=== PATIENT | female | born 1985 | race Hispanic/Latino ===

== ENCOUNTER 2020-05-13 05:45 | Emergency (ER) | payer OTHER ==
[2020-05-13 06:39] LABS: AMPHET/METH SCREEN,URINE NEGATIVE (NEGATIVE); BARBITURATE SCREEN, URINE NEGATIVE (NEGATIVE); BENZODIAZEPINES SCREEN,URINE NEGATIVE (NEGATIVE); CANNABINOID SCREEN,URINE POSITIVE (NEGATIVE); COCAINE SCREEN,URINE POSITIVE (NEGATIVE); OPIATE SCREEN,URINE NEGATIVE (NEGATIVE); PHENCYCLIDINE SCREEN,URINE NEGATIVE (NEGATIVE)
== END 2020-05-13 07:41 | disposition home or self-care (01) ==
LOC: EDH 05:45
DX: E86.9 Volume depletion, unspecified (principal); F14.10 Cocaine abuse, uncomplicated; Z98.890 Other specified postprocedural states
CPT/HCPCS: 80305; 93005; 96360

== ENCOUNTER 2020-12-20 16:12 | Emergency (ER) | payer SELFPAY | END 2020-12-20 18:06 | disposition home or self-care (01) | LOC: EDH 16:12 | DX: S00.03XA Contusion of scalp, initial encounter (principal); S00.11XA Contusion of right eyelid and periocular area, initial encounter; X58.XXXA Exposure to other specified factors, initial encounter; Y93.89 Activity, other specified; Y92.89 Other specified places as the place of occurrence of the external cause; Y99.8 Other external cause status; Z98.890 Other specified postprocedural states | CPT/HCPCS: 70450; 70486; 72125; 81025 ==

== ENCOUNTER 2021-02-21 19:50 | Emergency (ER) | payer MEDICAID, OTHER ==
[~2021-02-21] VITALS: Ht 154.9 cm; Wt 63.5 kg
[2021-02-21 20:03] VITALS: BP 133/92
[2021-02-21 20:15] VITALS: BP 136/90
[2021-02-21] MEDS ORDERED: 0.9%NACL 1000ML 1,000 ML IV SCH ×2 (21:15)
[2021-02-21] MEDS ORDERED: ONDANSETRON 4MG INJ IVP SCH (21:15)
[2021-02-21] MEDS ORDERED: METOCLOPRAMIDE 10 MG/2 ML VIAL IVP SCH (21:15)
[2021-02-21] MEDS ORDERED: KETOROLAC 30MG VIAL (30MG/ML) IV SCH (21:15)
[2021-02-21] MEDS ORDERED: DiphenhydrAMINE HCL 50 MG/ML VIAL IV SCH (21:15)
[2021-02-21 21:27] LABS: BASOPHILS % (AUTO) 0.7 % (0.0-5.0); EOSINOPHILS % (AUTO) 0.8 % (0.0-8.0); HEMATOCRIT 30.4 % (36-48); MEAN CORPUSCULAR HEMOGLOBIN 25.3 pg (27.0-33.0); MEAN CORPUSCULAR HGB CONC 30.6 g/dL (32.0-36.0); MEAN CORPUSCULAR VOLUME 82.8 fL (79-99); MONOCYTES % (AUTO) 9.6 % (3.0-13.0); NEUTROPHILS % (AUTO) 67.4 % (40.0-77.0); PLATELET COUNT (AUTO) 403 K/uL (130-400); RED BLOOD CELL COUNT(AUTO) 3.67 MIL/uL (4.00-5.50); RED CELL DISTRIBUTION WIDTH 21.3 % (11.0-15.5); WHITE BLOOD COUNT (AUTO) 8.8 K/uL (4.8-10.8)
[2021-02-21 21:32] LABS: INR 1.01 (0.85-1.15)
[2021-02-21 21:36] LABS: CARBON DIOXIDE 26 mmol/L (21-32); CHLORIDE 96 mmol/L (101-111); CREATININE 0.7 mg/dL (0.5-1.5); GLOMERULAR FILTR. RATE CALC 102 mL/min (>60); GLUCOSE,RANDOM 89 mg/dL (70-105); POTASSIUM 3.2 mmol/L (3.5-5.1); SODIUM SERUM 132 mmol/L (136-145); UREA NITROGEN, BLOOD 7 mg/dL (7-18)
[2021-02-21 21:36] LABS: HCG,QUAL RESULT NEGATIVE (NEGATIVE)
[2021-02-21 21:42] LABS: AMPHET/METH SCREEN,URINE POSITIVE (NEGATIVE); BARBITURATE SCREEN, URINE NEGATIVE (NEGATIVE); BENZODIAZEPINES SCREEN,URINE NEGATIVE (NEGATIVE); CANNABINOID SCREEN,URINE NEGATIVE (NEGATIVE); COCAINE SCREEN,URINE NEGATIVE (NEGATIVE); OPIATE SCREEN,URINE NEGATIVE (NEGATIVE); PHENCYCLIDINE SCREEN,URINE NEGATIVE (NEGATIVE)
[2021-02-21 21:55] LABS: ALANINE AMINOTRANSFERASE 23 U/L (12-78); ALBUMIN 4.2 g/dL (3.5-5.0); ALCOHOL, BLOOD 9 mg/dL (0-10); ASPARTATE AMINOTRANSFERASE 21 U/L (10-37); BILIRUBIN,TOTAL 0.6 mg/dL (0.2-1.0); CREATINE KINASE, TOTAL 241 U/L (21-232); MYOGLOBIN 30 ng/mL (10-92); TOTAL PROTEIN, SERUM 8.6 g/dL (6.0-8.3); TROPONIN I < 0.04 ng/mL (0.00-0.06)
[2021-02-21] MEDS ORDERED: 0.9%NACL 1000ML 1,000 ML IV ONE (22:18)
[2021-02-22 00:02] VITALS: BP 112/72
[2021-02-22] MEDS ORDERED: METO-296 PO (01:07)
[2021-02-22] MEDS ORDERED: ONDA4TAB10 PO (01:07)
== END 2021-02-22 01:36 | disposition home or self-care (01) ==
LOC: EDH 20:10
DX: E86.0 Dehydration (principal); F19.10 Other psychoactive substance abuse, uncomplicated; R51.9 Headache, unspecified; F32.9 Major depressive disorder, single episode, unspecified; Z79.899 Other long term (current) drug therapy; Z79.1 Long term (current) use of non-steroidal anti-inflammatories (NSAID)
CPT/HCPCS: 36415; 70450; 71045; 80053; 80305; 81025; 82550; 83735; 83874; 84484; 85025; 85610; 93005; 96361; 96374; 96375; 99285; J1200; J1885; J2405; J2765; J7030

== ENCOUNTER → 2021-03-14 | Emergency (ER) | payer OTHER ==
[~2021-03-14] VITALS: Ht 157.5 cm; Wt 63.5 kg
[~2021-03-14] MED LIST: METO-296 PO; ONDA4TAB10 PO
== END | disposition left against medical advice (07) ==
LOC: EDH 15:39
DX: R00.2 Palpitations (principal); Z53.21 Procedure and treatment not carried out due to patient leaving prior to being seen by health care provider
CPT/HCPCS: 71045; 93005

== ENCOUNTER 2023-03-16 08:09 | Emergency (ER) | payer OTHER ==
[~2023-03-16] VITALS: Ht 154.9 cm; Wt 78.0 kg
[2023-03-16 08:57] LABS: BASOPHILS % (AUTO) 1.2 % (0.0-5.0); HEMATOCRIT 33.2 % (36-48); MEAN CORPUSCULAR HEMOGLOBIN 28.8 pg (27.0-33.0); MEAN CORPUSCULAR HGB CONC 31.6 g/dL (32.0-36.0); MEAN CORPUSCULAR VOLUME 91.2 fL (79-99); MONOCYTES % (AUTO) 12.6 % (3.0-13.0); PLATELET COUNT (AUTO) 406 K/uL (130-400); RED BLOOD CELL COUNT(AUTO) 3.64 MIL/uL (4.00-5.50); RED CELL DISTRIBUTION WIDTH 15.3 % (11.0-15.5); WHITE BLOOD COUNT (AUTO) 4.2 K/uL (4.8-10.8)
[2023-03-16 09:20] LABS: APPEARANCE,URINE CLOUDY (CLEAR); BILIRUBIN,URINE NEGATIVE (NEGATIVE); COLOR,URINE YELLOW (YELLOW); GLUCOSE, URINE (UA) NEGATIVE (NEGATIVE); KETONES,URINE 40 mg/dL (NEGATIVE); LEUKOCYTE ESTERASE ,URINE NEGATIVE Leu/uL (NEGATIVE); NITRATE,URINE NEGATIVE (NEGATIVE); OCCULT BLOOD,URINE LARGE (NEGATIVE); PROTEIN,URINE 20 mg/dL (NEGATIVE); UROBILINOGEN,URINE 0.2 mg/dL (0.2-1.0)
[2023-03-16 09:24] LABS: BACTERIA,URINE RARE /HPF (None Seen); HCG,QUALITATIVE URINE NEGATIVE (NEGATIVE); MUCUS,URINE RARE LPF (None Seen); RBC,URINE 26-50 /HPF (0-1); SQUAMOUS EPITHELIAL CELL,UR MANY /HPF (0-2)
[2023-03-16 09:27] LABS: ALBUMIN 3.9 g/dL (3.5-5.0); CREATININE 0.7 mg/dL (0.5-1.5); POTASSIUM 3.8 mmol/L (3.5-5.1); TOTAL PROTEIN, SERUM 7.9 g/dL (6.0-8.3)
[2023-03-16] MEDS ORDERED: HYDROXYZINE 25 MG TABLET PO ONE (09:30)
[2023-03-16] MEDS ORDERED: PHARMACY COMMUNICATION MISC SCH (09:30)
[2023-03-16] MEDS ORDERED: METOCLOPRAMIDE 10 MG/2 ML VIAL IVP ONE (09:30)
[2023-03-16] MEDS ORDERED: FAMOTIDINE 20MG VIAL IV ONE (09:30)
[2023-03-16 09:34] LABS: AMPHET/METH SCREEN,URINE NEGATIVE (NEGATIVE); BARBITURATE SCREEN, URINE NEGATIVE (NEGATIVE); BENZODIAZEPINES SCREEN,URINE POSITIVE (NEGATIVE); CANNABINOID SCREEN,URINE POSITIVE (NEGATIVE); COCAINE SCREEN,URINE POSITIVE (NEGATIVE); OPIATE SCREEN,URINE NEGATIVE (NEGATIVE); PHENCYCLIDINE SCREEN,URINE NEGATIVE (NEGATIVE)
[2023-03-16 09:35] LABS: LIPASE 58 U/L (114-286)
[2023-03-16] MEDS ORDERED: FAMO-136 PO (10:49)
[2023-03-16] MEDS ORDERED: METO-296 PO (10:49)
[2023-03-16] MEDS ORDERED: HYDR50CA50 PO (10:49)
[2023-03-16] MEDS ORDERED: DISU250T14 PO (10:49)
[2023-03-16] MEDS ORDERED: [UNRECOGNIZED DRUG - OTHER] IV SCH (12:30)
[2023-03-16] MEDS ORDERED: FOLIC ACID IV SCH (12:30)
[2023-03-16] MEDS ORDERED: THIAMINE HCL IV SCH (12:30)
[2023-03-16] MEDS ORDERED: M V I IV SCH (12:30)
[2023-03-16] MEDS ORDERED: FOLIC ACID IV ONE (13:00)
[2023-03-16] MEDS ORDERED: THIAMINE HCL IV ONE (13:00)
[2023-03-16] MEDS ORDERED: [UNRECOGNIZED DRUG - OTHER] IV ONE (13:00)
[2023-03-16] MEDS ORDERED: M V I IV ONE (13:00)
[2023-03-16 16:28] VITALS: BP 133/84
== END 2023-03-16 16:24 | disposition home or self-care (01) ==
LOC: EDH 08:09
DX: F19.10 Other psychoactive substance abuse, uncomplicated (principal); F10.20 Alcohol dependence, uncomplicated; K21.9 Gastro-esophageal reflux disease without esophagitis; F41.9 Anxiety disorder, unspecified; F32.A Depression, unspecified; Z79.899 Other long term (current) drug therapy; Z98.890 Other specified postprocedural states
CPT/HCPCS: 99285; 96365; 96366; 71045; 96375; 82550; 84484; 80053; 80305; 83690; 85025; 81025; 36415; 93005; 81001; J7120 ×2; J3490 ×3; J3411 ×2; J2765

== ENCOUNTER 2023-05-10 10:06 | Emergency (ER) | payer OTHER ==
[~2023-05-10] VITALS: Ht 154.9 cm; Wt 79.8 kg
[~2023-05-10 10:06] MED LIST changes: +DISU250T14 PO; +FAMO-136 PO; +HYDR50CA50 PO
[2023-05-10 10:57] LABS: BASOPHILS # (AUTO) 0.05 K/uL (0.00-0.20); BASOPHILS % (AUTO) 0.5 % (0.0-5.0); EOSINOPHILS # (AUTO) 0.01 K/uL (0.00-0.70); EOSINOPHILS % (AUTO) 0.1 % (0.0-8.0); HEMATOCRIT 33.5 % (36-48); IMMATURE GRANULOCYTE ABSOLUTE 0.08 K/uL (0-1); LYMPHOCYTES # (AUTO) 1.1 K/uL (1.0-4.8); LYMPHOCYTES % (AUTO) 9.7 % (21.0-51.0); MEAN CORPUSCULAR HEMOGLOBIN 29.3 pg (27.0-33.0); MEAN CORPUSCULAR HGB CONC 32.2 g/dL (32.0-36.0); MONOCYTES # (AUTO) 0.5 K/uL (0.1-1.0); MONOCYTES % (AUTO) 4.9 % (3.0-13.0); NEUTROPHILS # (AUTO) 9.2 K/uL (1.8-7.7); NEUTROPHILS % (AUTO) 84.1 % (40.0-77.0); PLATELET COUNT (AUTO) 367 K/uL (130-400); RED BLOOD CELL COUNT(AUTO) 3.68 MIL/uL (4.00-5.50); RED CELL DISTRIBUTION WIDTH 15.9 % (11.0-15.5); WHITE BLOOD COUNT (AUTO) 10.9 K/uL (4.8-10.8)
[2023-05-10 11:08] LABS: CARBON DIOXIDE 23 mmol/L (21-32); CHLORIDE 97 mmol/L (101-111); CREATININE 0.7 mg/dL (0.5-1.5); GLOMERULAR FILTR. RATE CALC 116 mL/min (>90); GLUCOSE,RANDOM 137 mg/dL (70-105); POTASSIUM 3.8 mmol/L (3.5-5.1); SODIUM SERUM 132 mmol/L (136-145); UREA NITROGEN, BLOOD 13 mg/dL (7-18)
[2023-05-10 11:12] LABS: ALANINE AMINOTRANSFERASE 18 U/L (12-78); ALBUMIN 3.8 g/dL (3.5-5.0); ALCOHOL, BLOOD 39 mg/dL (0-10); ASPARTATE AMINOTRANSFERASE 18 U/L (10-37); BILIRUBIN,TOTAL 0.4 mg/dL (0.2-1.0); CREATINE KINASE, TOTAL 111 U/L (21-232); TOTAL PROTEIN, SERUM 8.4 g/dL (6.0-8.3)
[2023-05-10 11:15] LABS: ACETAMINOPHEN < 1 mcg/mL (10-30); SALICYLATE < 2.8 mg/dL (2.8-20.0)
[2023-05-10] MEDS ORDERED: LORAZEPAM 2 MG/ML 1 ML VIAL IVP ONE (14:00)
[2023-05-10 14:19] LABS: APPEARANCE,URINE CLEAR (CLEAR); BILIRUBIN,URINE NEGATIVE (NEGATIVE); COLOR,URINE COLORLESS (YELLOW); GLUCOSE, URINE (UA) NEGATIVE (NEGATIVE); KETONES,URINE NEGATIVE (NEGATIVE); LEUKOCYTE ESTERASE ,URINE NEGATIVE Leu/uL (NEGATIVE); NITRATE,URINE NEGATIVE (NEGATIVE); OCCULT BLOOD,URINE MODERATE (NEGATIVE); PROTEIN,URINE NEGATIVE (NEGATIVE); UROBILINOGEN,URINE 0.2 mg/dL (0.2-1.0)
[2023-05-10 14:20] LABS: ADD UA MICROSCOPIC YES
[2023-05-10 14:25] LABS: BACTERIA,URINE RARE /HPF (None Seen); RBC,URINE 0-1 /HPF (0-1); WBC,URINE 0-1 /HPF (0-1)
[2023-05-10] MEDS ORDERED: [UNRECOGNIZED DRUG - OTHER] IV ONE (15:00)
[2023-05-10] MEDS ORDERED: FOLIC ACID IV ONE (15:00)
[2023-05-10] MEDS ORDERED: M V I IV ONE (15:00)
[2023-05-10] MEDS ORDERED: THIAMINE HCL IV ONE (15:00)
[2023-05-10] MEDS ORDERED: HYDR-3421 PO (16:43)
[2023-05-10 17:09] VITALS: BP 151/67; PULSE 71; RESP 20; O2SAT 98
== END 2023-05-10 17:13 | disposition home or self-care (01) ==
LOC: EDH 10:06
DX: F41.9 Anxiety disorder, unspecified (principal); E86.0 Dehydration; F10.20 Alcohol dependence, uncomplicated; F32.A Depression, unspecified; Z79.899 Other long term (current) drug therapy; Z98.890 Other specified postprocedural states
CPT/HCPCS: 99284; 96374; 96375; 82550; 80053; 84703; 85025; 36415; 93005; 81001; G0481; J7030; J3411; J2060; J3490